=== PATIENT | female | born 1980 | race Caucasian/White ===

== ENCOUNTER → 2017-06-16 | Outpatient (CLI) | payer BC | END | disposition home or self-care (01) | LOC: C.PATHSPEC 14:24 | PROVIDERS: ATTEND Dentist Endodontics | DX: K13.79 Other lesions of oral mucosa (principal) ==

== ENCOUNTER 2018-01-25 08:56 | Inpatient (IN) | payer BC ==
[2018-01-20 18:02] LABS: BASO % 0.1 %; BASO ABS # 0.01 K/uL (0-0.2); EOS % 1.1 %; HEMATOCRIT 35.3 % (37-47); HEMOGLOBIN 11.6 g/dL (12.0-16.0); IG# 0.02 K/uL (0.00-0.02); LYMPH % 32.3 %; MEAN CELL VOLUME 77.6 fL (80-100); MEAN CORPUSCULAR HEMOGLOBIN 25.5 pg (25-34); MEAN CORPUSCULAR HGB CONC 32.9 g/dl (32-36); MEAN PLATELET VOLUME 9.4 fL (7.4-10.4); MONO % 5.2 %; MONO ABS # 0.47 K/uL (0.11-0.59); NEUT % 61.1 %; NEUT ABS # 5.48 K/uL (1.4-6.5); PLATELET COUNT 306 K/uL (130-400); RED CELL DISTRIBUTION WIDTH CV 16.6 % (11.5-14.5); WHITE BLOOD COUNT 8.98 K/uL (4.8-10.8)
--- NOTE | 2018-01-20 18:09 | DIAGNOSTIC IMAGING REPORT ---
CHEST 2 VIEWS ROUTINE CLINICAL HISTORY: 37 years-old Female presenting with preoperative assessment, asymptomatic, history of lung nodule. TECHNIQUE: PA and lateral views of the chest were obtained. COMPARISON: None. FINDINGS: Cardiomediastinal silhouette normal. Lungs and pleural spaces clear. Degenerative changes of the thoracic spine. Cholecystectomy clips noted. IMPRESSION: 1. No acute cardiopulmonary disease. Electronically signed by: Marlon Oglesby M.D. 01/20/2018 6:07 PM Dictated Date/Time: 01/20/2018 6:06 PM
[2018-01-20 18:21] LABS: BLOOD UREA NITROGEN 11 mg/dl (7-18); CALCIUM 8.9 mg/dl (8.5-10.1); CARBON DIOXIDE 27 mmol/L (21-32); CREATININE 0.61 mg/dl (0.60-1.20); GLUCOSE 96 mg/dl (70-99); POTASSIUM 3.3 mmol/L (3.5-5.1); SODIUM 140 mmol/L (136-145)
[2018-01-21 14:58] VITALS: BMI 57.0
[~2018-01-25] VITALS: Ht 167.6 cm; Wt 165.7 kg
[2018-01-25] VITALS (9 sets, daily range): BP systolic 94–156; BP diastolic 61–94; PULSE 84–107; TEMP 36.3–37; O2SAT 95–99; Ht 167.6 cm; Wt 165.7 kg
[~2018-01-25 08:56] MED LIST: ACET-1256 PO; ACETAMINOPHEN 500 MG TAB PO SCH; CEFAZOLIN 3000MG IV PUSH 22.5 ML IV SCH; CIPR1TAB11 PO; CeleBREX 200 MG CAP PO SCH; GABAPENTIN 900 MG PO SCH; HYDR25TA4 PO; LACTATED RINGER'S 1000ML 1,000 ML IV SCH; PRED-301 PO; PRLSR20 PO; VALA500T60 PO
[2018-01-25] MEDS ORDERED: EpHEDrine SULFATE INJ 50 MG/ML AMP IV PRN (10:00)
[2018-01-25] MEDS ORDERED: ONDANSETRON INJ 2 MG/ML 2 ML VIAL IV PRN ×2 (10:00→14:45)
[2018-01-25] MEDS ORDERED: FENTANYL CITRATE INJ 50 MCG/1 ML 2 ML VIAL IV PRN (10:00)
[2018-01-25] MEDS ORDERED: ATROPINE SULFATE 0.1 MG/ML 5ML SYR IV PRN (10:00)
--- NOTE | 2018-01-25 10:20 | History & Physical Bridge Note ---
H&P Re-Evaluation Bridge Note: I have examined the patient, reviewed the History & Physical and in the interval since the performance of the History & Physical I have noted the following changes of clinical significance: No changes noted
--- NOTE | 2018-01-25 10:22 | History and Physical ---
History & Physical Date January 25, 2018. Chief Complaint Back and leg pain History of Present Illness The patient is a 37 year old female with complaints of severe back and bilateral leg pain. She is failed extensive course of nonoperative care marked inability to function and would like to undergo surgical intervention. Additional History Hepatic Disease: No Endocrine Disorder: No Kidney Disease: No Hypertension: Yes Heart Disease: No Bleeding Tendencies: No Infectious Diseases: No Other: Morbid obesity Allergies Coded Allergies: No Known Allergies (Unverified , 01/21/18) Home Medications Scheduled Ciprofloxacin Tab (Cipro), 500 MG PO UD Hydrochlorothiazide (Hctz), 25 MG PO QAM Omeprazole (Prilosec), 20 MG PO HS Prednisone (Prednisone), 5 MG PO QDD Scheduled PRN Acetaminophen (Tylenol), 2 TAB PO UD PRN for Pain Valacyclovir (Valtrex), 500 MG PO UD PRN for COLD SORE Physical Examination Skin: warm/dry, no rash Eyes: normal inspection, EOMI, sclerae normal ENT: normal ENT inspection, pharynx normal Head: normocephalic, atraumatic Neck: supple, no adenopathy, trachea midline Respiratory/Chest: lungs clear, normal breath sounds, no respiratory distress Cardiovascular: regular rate, rhythm, no edema, no murmur Abdomen / GI: normal bowel sounds, non tender Back: normal inspection Extremities: normal inspection, normal range of motion Neurologic/Psych: no motor/sensory deficits, alert, normal reflexes, oriented x 3 Diagnosis Lumbar spinal stenosis with herniated nucleus pulposus and free fragment L4-5 and L5-S1 Plan of Treatment Lumbar decompression and fusion L4-5 L5-S1
[2018-01-25] MEDS ORDERED: MIDAZOLAM HCL 1 MG/ML 2ML VIAL ONE (10:39)
[2018-01-25] MEDS ORDERED: FENTANYL CITRATE INJ 50 MCG/1 ML 2 ML VIAL ONE ×6 (10:39→13:58)
[2018-01-25] MEDS ORDERED: BUPIVACAINE 0.5 % 5 MG/1 ML MPF 30ML VIAL ONE (11:11)
[2018-01-25] MEDS ORDERED: BACITRACIN 50000 UNIT VIAL ONE (11:11)
[2018-01-25] MEDS ORDERED: EpINEphrine INJ 1MG/ML AMP 1 MG/ML AMP ONE (11:11)
[2018-01-25] MEDS ORDERED: HYDROmorphone INJ 2 MG/ML SYR/VIAL ONE ×2 (11:54→13:24)
[2018-01-25] MEDS ORDERED: ONDANSETRON INJ 2 MG/ML 2 ML VIAL ONE ×2 (12:19→14:08)
[2018-01-25] MEDS ORDERED: DEXAMETHASONE SOD INJ 4 MG/ML VIAL ONE (12:19)
[2018-01-25] MEDS ORDERED: LIDOCAINE HCL 2% 2 ML VIAL (20MG/ML) ONE (12:19)
[2018-01-25] MEDS ORDERED: ESMOLOL HCL 10 MG/ML 10 ML VIAL ONE (12:19)
[2018-01-25] MEDS ORDERED: PROPOFOL IV EMULSION 10 MG/ML 20 ML VIAL ONE (12:19)
[2018-01-25] MEDS ORDERED: GLYCOPYRROLATE INJ 0.2 MG/ML VIAL ONE (13:55)
[2018-01-25] MEDS ORDERED: NEOSTIGMINE METHYLSULFATE 1 MG/ML 10ML VIAL ONE (13:55)
[2018-01-25] MEDS ORDERED: SURGICEL ABSORB HEMOSTAT 2IN X 14IN TOP ONE (13:57)
[2018-01-25] MEDS ORDERED: VOLUVEN IN NSS ONE (14:08)
[2018-01-25] MEDS ORDERED: KETOROLAC TROMETHAMINE 30 MG/ML VIAL ONE (14:08)
[2018-01-25] MEDS ORDERED: FLOSEAL HEMOSTATIC MATRIX 10ML TOP ONE (14:29)
--- NOTE | 2018-01-25 14:41 | [facility] Operative Report ---
Operative Report Operative Date January 25, 2018. Pre-Operative Diagnosis Lumbar spinal stenosis with herniated nucleus pulposus and free fragment L4-5 and L5-S1 Post-Operative Diagnosis Lumbar spinal stenosis with herniated nucleus pulposus and free fragment L4-5 and L5-S1 Procedure(s) Performed 1. Lumbar decompression medial facetectomies foraminotomies L3-4 L4-5 L5-S1. #2 posterior spinal fusion L4-5 L5-S1. #3 placement posterior segment instrumentation L4-5 L5-S1. #4 interbody fusion L4-5 L5-S1. #5 placement of titanium cage 11 x 22 mm L4-5 and 9 x 22 mm L5-S1. #6 placement of locally harvested morselized autograft and posterior gutters. #7 placement InFUSE collagen sponge, mass graft the posterior gutters and ostial amp in the interbody space. Surgeon Dr. Gavino Munoz Watch Repairer Apprentice Surgeon(s) Minda David PA-C Estimated Blood Loss 675ml Findings Severe spinal stenosis Specimens None per surgeon Anesthesia Type General Description of Procedure Patient was met with preoperatively case discussed all questions addressed. After informed consent obtained patient was taken to the operative suite underwent intubation and placed in a prone position the Celso table on top of the Ronal frame. All bony prominences well-padded eyes inspected to ensure no external pressure placed upon them. This point the lumbar spine was prepped and draped in normal sterile fashion. Sharp dissection with the assistance of Bovie cautery was performed on February exposing the lamina and transverse process of L4-L5 and sacral ala bilaterally. From caudocephalad fashion complete laminectomy of L5 L4 partial laminectomy of L3 is performed addressing severe lateral recess and foraminal disease appreciable compression of the nerves. After this complete pedicle screws placed in L4 L5-S1 levels bilaterally with the assistance of fluoroscopy purposes malou placed. Through a transforaminal approach and right complete discectomy of L5-S1 was performed endplates created to subcortical bleeding bone and a 9 x 22 mm titanium cage filled with ostium bone graft tapped in position. Then proceeded to 4 5 and again through a transforaminal approach right complete discectomy performed endplates could to subcortical bleeding bone and a 11 x 22 mm titanium cage filled ostia bone graft tapped in position. Of note the discs and annulus were well calcified. Several fragments were removed as well as addressing caudal migration. Rods were then compressed locked in final position bilaterally. The transverse processes of L4 L5-S1 levels burred to subcortical bleeding bone. Infuse collagen sponge mesh graft and local autograft placed in the posterior gutters. 15 round JAMA drain inserted. Incision incision closed with 1 Vicryl fascia 2- 0 Vicryl substantially 4 Monocryl fashion closure Steri-Strips sterile dressings placed patient will continue PACU stable discrete please note Minda David was present throughout the entire procedure involved in patient positioning complex portions of the surgery and fashion closure. I attest to the content of the Intraoperative Record and any orders documented therein. Any exceptions are noted below.
[2018-01-25] MEDS ORDERED: SODIUM CHLORIDE 0.9% 1000ML 1,000 ML IV SCH (14:42)
[2018-01-25] MEDS ORDERED: ALUMINUM/MAGNESIUM SUSP 30 ML UDC PO PRN (14:45)
[2018-01-25] MEDS ORDERED: PROMETHAZINE HCL INJ 12.5 MG in SODIUM CHLORIDE 0.9% 50ML 50 ML IV PRN (14:45)
[2018-01-25] MEDS ORDERED: MAGNESIUM HYDROXIDE SUSP 30 ML UDC PO PRN (14:45)
[2018-01-25] MEDS ORDERED: BISACODYL 10 MG SUPP PR PRN (14:45)
[2018-01-25] MEDS ORDERED: SOD PHOSPHATE/SOD BIPHOSPHATE ENEMA 132 ML BTL PR PRN (14:45)
[2018-01-25] MEDS ORDERED: LORAZEPAM 0.5 MG TAB PO PRN (14:45)
[2018-01-25] MEDS ORDERED: hydrOXYzine HCL 25 MG TAB PO PRN (14:45)
[2018-01-25] MEDS ORDERED: NALOXONE HCL 0.4 MG/1 ML VIAL/CARP IV PRN ×2 (14:45)
[2018-01-25] MEDS ORDERED: FAMOTIDINE 20 MG TAB PO PRN (14:45)
[2018-01-25] MEDS ORDERED: DO NOT ADMINISTER FLU VACCINE PRN (14:45)
[2018-01-25] MEDS ORDERED: DO NOT ADMINISTER PNEUMOCOCCAL VACCINE PRN (14:45)
[2018-01-25] MEDS ORDERED: LORAZEPAM INJ 0.5 MG in SYRINGE 0.75 ML IV PRN (14:45)
[2018-01-25] MEDS ORDERED: METOCLOPRAMIDE HCL INJ 5 MG/ML 2 ML VIAL IV PRN (14:45)
[2018-01-25] MEDS ORDERED: ROCURONIUM BROMIDE 10 MG/ML 5 ML VIAL ONE (14:52)
[2018-01-25] MEDS ORDERED: SUCCINYLCHOLINE CHLORIDE 20 MG/ML 10 ML VIAL IV ONE (14:52)
--- NOTE | 2018-01-25 14:53 | DIAGNOSTIC IMAGING REPORT ---
LUMBAR SPINE, INTRAOPERATIVE FLUOROSCOPY HISTORY: L4-S1 decompression and fusion. FLUOROSCOPY TIME: 33 seconds. FINDINGS: Intraoperative fluoroscopy was provided for the lumbar spine. 2 fluoroscopic spot images were obtained. Posterior decompression and fusion from L4 through S1 with pedicle screws and rods. The hardware is intact. IMPRESSION: Fluoroscopy provided for a L4-S1 posterior decompression and fusion. Electronically signed by: Roque Yarbrough M.D. 01/25/2018 2:52 PM Dictated Date/Time: 01/25/2018 2:51 PM
[2018-01-25] MEDS: HYDROmorphone HCL 0.5MG/ML 50 ML CASSETTE IV PRN ×3 (15:22→23:00)
--- NOTE | 2018-01-25 15:44 | Anesthesiology Progress Note ---
Anesthesia Post Op Note Date & Time January 25, 2018 at 15:44 Vital Signs Pain Intensity: 0 Vital Signs Past 12 Hours Date Time Temp Pulse Resp B/P (MAP) Pulse Ox O2 Delivery O2 Flow Rate FiO2 01/25/18 15:06 36.6 87 11 148/81 100 Oxymask 10 01/25/18 10:25 37 84 20 156/94 01/25/18 09:27 96 Room Air Notes Mental Status: alert / awake / arousable, participated in evaluation Pt Amnestic to Procedure: Yes Nausea / Vomiting: adequately controlled Pain: adequately controlled Airway Patency, RR, SpO2: stable & adequate BP & HR: stable & adequate Hydration State: stable & adequate Anesthetic Complications: no major complications apparent
[2018-01-25] MEDS ORDERED: ACETAMINOPHEN 500 MG TAB PO PRN (18:00)
[2018-01-25] MEDS ORDERED: ACETAMINOPHEN IV 100 ML IV PRN (18:00)
[2018-01-25] MEDS: LACTATED RINGER'S 1000ML 1,000 ML IV SCH (19:49)
[2018-01-25] MEDS: CEFAZOLIN IV 2,000 MG in SYRINGE 0 ML IV SCH (20:06)
[2018-01-25] MEDS: PANTOprazole SOD 40 MG TAB PO SCH (21:24)
[2018-01-25] MEDS: DOCUSATE SODIUM/SENNA 50/8.6MG TAB PO SCH (21:25)
[2018-01-26] MEDS: LACTATED RINGER'S 1000ML 1,000 ML IV SCH (02:15)
[2018-01-26] MEDS: CEFAZOLIN IV 2,000 MG in SYRINGE 0 ML IV SCH (03:44)
[2018-01-26 03:55] VITALS: BP 133/72; PULSE 95; TEMP 36.8; O2SAT 96
[2018-01-26] MEDS ORDERED: DC PCA ONE (06:00)
[2018-01-26] MEDS ORDERED: HYDROmorphone INJ 0.5 MG/0.5 ML SYR IV PRN (06:00)
[2018-01-26] MEDS ORDERED: NURSING VERBAL MED ORDER ONE (06:30)
[2018-01-26 06:45] LABS: BASO % 0.1 %; BASO ABS # 0.01 K/uL (0-0.2); HEMATOCRIT 28.9 % (37-47); HEMOGLOBIN 9.4 g/dL (12.0-16.0); IG# 0.07 K/uL (0.00-0.02); LYMPH % 7.1 %; LYMPH ABS # 1.11 K/uL (1.2-3.4); MEAN CELL VOLUME 77.9 fL (80-100); MEAN CORPUSCULAR HEMOGLOBIN 25.3 pg (25-34); MEAN CORPUSCULAR HGB CONC 32.5 g/dl (32-36); MEAN PLATELET VOLUME 9.7 fL (7.4-10.4); MONO % 4.8 %; MONO ABS # 0.75 K/uL (0.11-0.59); NEUT % 87.6 %; NEUT ABS # 13.68 K/uL (1.4-6.5); PLATELET COUNT 300 K/uL (130-400); RED CELL DISTRIBUTION WIDTH CV 16.3 % (11.5-14.5); RED CELL DISTRIBUTION WIDTH SD 46.3 fL (36.4-46.3); WHITE BLOOD COUNT 15.62 K/uL (4.8-10.8)
[2018-01-26 07:16] LABS: CALCIUM 8.2 mg/dl (8.5-10.1); CREATININE 0.63 mg/dl (0.60-1.20); POTASSIUM 4.4 mmol/L (3.5-5.1)
[2018-01-26 07:29] VITALS: BP 115/73; PULSE 96; TEMP 36.7; O2SAT 94
--- NOTE | 2018-01-26 07:52 | Anesthesiology Progress Note ---
Anesthesia Post Op Note Date & Time January 26, 2018 at 07:52 Vital Signs Pain Intensity: 5.0 Vital Signs Past 12 Hours Date Time Temp Pulse Resp B/P (MAP) Pulse Ox O2 Delivery O2 Flow Rate FiO2 01/26/18 07:29 36.7 96 19 115/73 (87) 94 Room Air 01/26/18 07:18 Room Air 01/26/18 03:55 36.8 95 16 133/72 (92) 96 Room Air 01/25/18 23:31 36.8 107 16 115/68 (84) 96 Room Air 01/25/18 23:20 Room Air Notes Mental Status: alert / awake / arousable, participated in evaluation Pt Amnestic to Procedure: Yes Nausea / Vomiting: adequately controlled, improving with treatment Pain: adequately controlled Airway Patency, RR, SpO2: stable & adequate BP & HR: stable & adequate Hydration State: stable & adequate Anesthetic Complications: no major complications apparent
[2018-01-26] MEDS: OXYCODONE HCL IR 5 MG TAB (IMMEDIATE RELEASE) PO PRN (08:55)
[2018-01-26] MEDS: HYDROCHLOROTHIAZIDE 25 MG TAB PO SCH (09:13)
--- NOTE | 2018-01-26 09:54 | Progress Note ---
Progress Note Date of Service January 26, 2018. Progress Note Back pain controlled leg symptoms improved some numbness in the right lower extremity. Vital signs are stable. JAMA drain decreasing probably. On exam she is good strength testing appears comfortable. Assessment status post lumbar decompression fusion per plan at this time will initiate physical therapy advance her bowel regiment hopefully discharge home in the next few days.
[2018-01-26] MEDS ORDERED: RXC5 PO (09:56)
--- NOTE | 2018-01-26 09:57 | Discharge Instructions ---
Discharge Instructions Date of Service January 26, 2018. Admission Reason for Admission: Lumbar Spinal Stenosis Discharge Discharge Diagnosis / Problem: lumbar stenosis Discharge Goals Goal(s): Improve function Activity Recommendations Activity Limitations: per Instructions/Follow-up section . Instructions / Follow-Up Instructions / Follow-Up ACTIVITY RECOMMENDATIONS: SELF CARE INSTRUCTIONS AFTER THORACIC/LUMBAR FUSIONS 1. You may walk to your tolerance. It is good exercise for your legs and back. Expect some back and intermittent leg aches and pains. 2. You may perform "counter-top" level activities (make a sandwich, soni with a project, etc.). 3. No bending or lifting of more than 10 pounds or back twisting of any nature (roll like a log when turning in bed). 4. You may ride in a car for 20-30 minutes at a time. No driving until after your first visit with your doctor. 5. Frequent changes of position and restricting sitting to 30 minutes at a time will help limit the amount of back spasms and stiffness you may experience. 6. You may discontinue the use of ambulatory aids (cane, crutches, etc.) once your strength and confidence allow. 7. You may coding coordinator the shower and let water strike your incision when you arrive home at least once daily. Do not take a tub bath, sit in a hot tub or go into a swimming pool until after your first recheck in the office. SPECIAL CARE INSTRUCTIONS: VERY IMPORTANT TO READ AND REVIEW A. Your surgical incision has been closed with a cosmetic suture under the skin that will dissolve in about 6 weeks. In 14 days, you can use a pair of clean scissors and cut the suture that is left outside of the skin at the ends of your incision. 1. The small skin tapes can be removed 7 days after surgery if they have not fallen off by that point. 2. You may keep the wound open to air as much as possible to promote healing after post-op day number 5 unless told otherwise by your doctor. 3. If you think the wound looks like it is becoming infected (redness or worsening drainage) and/or you are experiencing fever, chill or worsening back pain and muscle spasms, contact the office so that we may evaluate you as soon as possible. B. Complications are uncommon, but please contact us if you have any signs or symptoms of: 1. wound infection (fever higher than 102.5 degrees F, redness, separation of wound, drainage, or increasing pain from the incision) 2. blood clots in legs (pain, swelling, redness and warmth in legs) 3. urinary tract infection (fever higher than 102.5 degrees F, burning upon urination or increased frequency of urination) 4. nerve problems (inability to walk on your toes or heels, numbness, loss of bowel or bladder control) 5. any other symptoms that concern you C. Please call the office at if you have any concerns or questions about your operation or recovery. D. No smoking! Smoking drastically decreases the chance of a solid fusion. E. Do not take any anti-inflammatory medications (Indocin, Advil, Motrin, Aspirin, Naprosyn, etc.) as these may inhibit the chance of a solid fusion. Tylenol is okay to take for pain. MANAGING PAIN AFTER SPINAL SURGERY 1. Narcotic medication is intended for short-term use and will be provided for surgical pain. Surgical pain usually lasts for a period of 4-6 weeks. Narcotic medication includes Percocet, Vicodin, Darvocet, Tylenol #3 or Lortab. 2. Longer-term pain is more appropriately treated with non-narcotic medication such as Tylenol ES. 3. Muscle spasm is not appropriately treated with narcotics. Muscle relaxers such as Soma, Flexeril or Skelaxin can be used along with Tylenol ES. 4. Remember that we all live with some "aches and pains". This is not unusual or uncommon after an injury or as we get older. a. Back pain is expected and may include muscle spasms for 4 to 6 weeks after surgery. The pain should gradually improve. If the pain worsens for no apparent reason, please contact the office. b. Intermittent leg pain may also be experienced and should not be concerned about unless it worsens for no apparent reason. If so, please contact the office. 5. We will provide appropriate medication within the normal guidelines of their prescribed use. We will also be very cautious and aware of potential abuse and extended duration of patients' medication needs. a. Pain medications are for your comfort and to assist with sleep and rest so that the tissue can heal. They are not provided in order to return to normal activity and should not be used through the day. To do so or worsening pain at night can result from ongoing tissue damage and development of tolerance to the prescribed medicine. 6. Please allow 2-3 days to process refills. Prescriptions will not be mailed but must be picked up at the office. FOLLOW UP VISIT: Keep your scheduled follow-up appointment. Any questions, please call the office at . Current Hospital Diet Patient's current hospital diet: Regular Diet Discharge Diet Recommended Diet: Regular Diet Procedures Procedures Performed: 1. Lumbar decompression medial facetectomies foraminotomies L3-4 L4-5 L5-S1. #2 posterior spinal fusion L4-5 L5-S1. #3 placement posterior segment instrumentation L4-5 L5-S1. #4 interbody fusion L4-5 L5-S1. #5 placement of titanium cage 11 x 22 mm L4-5 and 9 x 22 mm L5-S1. #6 placement of locally harvested morselized autograft and posterior gutters. #7 placement InFUSE collagen sponge, mass graft the posterior gutters and ostial amp in the interbody space. Pending Studies Studies pending at discharge: no Medical Emergencies . Who to Call and When: Medical Emergencies: If at any time you feel your situation is an emergency, please call 911 immediately. . Non-Emergent Contact Non-Emergency issues call your: Primary Care Provider . "Provider Documentation" section prepared by Gavino Munoz. .
[2018-01-26 10:44] VITALS: BP 106/67; PULSE 90; O2SAT 97
[2018-01-26 10:45] VITALS: BP 107/72; PULSE 95; TEMP 37; O2SAT 97
[2018-01-26 15:11] VITALS: BP 133/68; PULSE 90; TEMP 36.9; O2SAT 99
[2018-01-26] MEDS: KETOROLAC TROMETHAMINE 30 MG/ML VIAL IV PRN ×2 (15:26→21:34)
[2018-01-26] MEDS: DOCUSATE SODIUM/SENNA 50/8.6MG TAB PO SCH (20:27)
[2018-01-26] MEDS: PANTOprazole SOD 40 MG TAB PO SCH (20:27)
[2018-01-26 23:10] VITALS: BP 124/72; PULSE 79; TEMP 36.6; O2SAT 96
[2018-01-27] MEDS: POLYETHYLENE (MIRALAX) 17 GM PACK PO SCH ×4 (05:58→23:22)
[2018-01-27 07:39] VITALS: BP 137/81; PULSE 91; TEMP 36.8; O2SAT 98
[2018-01-27] MEDS: HYDROCHLOROTHIAZIDE 25 MG TAB PO SCH (08:19)
[2018-01-27 08:30] VITALS: O2SAT 98
--- NOTE | 2018-01-27 13:09 | Progress Note ---
Progress Note Date of Service January 27, 2018. Progress Note Patient's making slow progress with therapy. Still feels some weakness in the bilateral extremity's. Her leg symptoms and pain are improved. She still has some residual numbness to the right lower extremity. On exam she is alert and oriented cooperative is good strength testing. Assessment status post lumbar decompression fusion per plan at this time will continue to advance therapy as tolerated and she would like to go home the next few days.
[2018-01-27] MEDS: KETOROLAC TROMETHAMINE 30 MG/ML VIAL IV PRN (14:31)
[2018-01-27 15:22] VITALS: BP 157/102; PULSE 93; TEMP 36.8; O2SAT 100
[2018-01-27 15:35] VITALS: BP 155/88
[2018-01-27] MEDS ORDERED: NURSING VERBAL MED ORDER ONE (16:45)
[2018-01-27] MEDS: DOCUSATE SODIUM/SENNA 50/8.6MG TAB PO SCH (20:13)
[2018-01-27] MEDS: PANTOprazole SOD 40 MG TAB PO SCH (20:13)
[2018-01-27 23:05] VITALS: BP 108/72; PULSE 90; TEMP 36.7; O2SAT 96
[2018-01-28] MEDS: KETOROLAC TROMETHAMINE 30 MG/ML VIAL IV PRN (01:13)
[2018-01-28] MEDS: POLYETHYLENE (MIRALAX) 17 GM PACK PO SCH ×3 (05:36→18:00)
[2018-01-28 07:18] VITALS: BP 125/84; PULSE 86; TEMP 36.8; O2SAT 97
[2018-01-28] MEDS: HYDROCHLOROTHIAZIDE 25 MG TAB PO SCH (08:51)
[2018-01-28 09:00] VITALS: O2SAT 97
--- NOTE | 2018-01-28 14:28 | Progress Note ---
Progress Note Date of Service January 28, 2018. Progress Note Patient states her back pain is controlled. Leg pain improving. Still some numbness. No bowel movement as of yet. On exam she is in a chair at the bedside. Is good strength testing. Assessment status post multilevel lumbar depression fusion per plan at this time will continue to advance her bowel regimen continue physical therapy anticipate home tomorrow.
[2018-01-28 14:54] VITALS: BP 126/80; PULSE 93; TEMP 36.9; O2SAT 100
[2018-01-28] MEDS ORDERED: NURSING DECISION MEDICATION ORDER SCH (19:30)
[2018-01-28] MEDS: PANTOprazole SOD 40 MG TAB PO SCH (20:37)
[2018-01-28] MEDS: DOCUSATE SODIUM/SENNA 50/8.6MG TAB PO SCH (20:37)
[2018-01-28] MEDS: OXYCODONE HCL IR 5 MG TAB (IMMEDIATE RELEASE) PO PRN (20:38)
[2018-01-28 23:22] VITALS: BP 106/72; PULSE 86; TEMP 36.7; O2SAT 98
[2018-01-29 06:30] VITALS: BP 116/77; PULSE 83; TEMP 36.8; O2SAT 96
[2018-01-29] MEDS: HYDROCHLOROTHIAZIDE 25 MG TAB PO SCH (07:32)
[2018-01-29 09:40] VITALS: BP 116/77; PULSE 83; TEMP 36.8; O2SAT 96
[2018-01-29] MEDS: OXYCODONE HCL IR 5 MG TAB (IMMEDIATE RELEASE) PO PRN (10:47)
--- NOTE | 2018-01-29 11:09 | Discharge Summary ---
Orthopedic Discharge Summary Admission Date/Reason January 25, 2018 at 10:30 Lumbar Spinal Stenosis. Discharge Date/Disposition January 29, 2018 Home Diagnosis Principal Diagnosis: Lumbar spinal stenosis Admission Physical Exam As per Admitting History & Physical. Hospital Course Patient underwent lumbar decompression fusion tolerated as well as taken to the orthopedic floor possibly. Postop day #1 she is up and amatory progressed the postop day #2 and 3 though very slow to progress she improved steadily. JAMA drain decreased appropriately. Subsequently discharged home. Discharge orders instructions can be found in chart for further review. Discharge Instructions Please refer to the electronic Patient Visit Report (Discharge Instructions) for additional information.
== END 2018-01-29 11:21 | disposition home or self-care (01) | DRG 454 ==
LOC: C.ACU 08:56 → C.3E 10:30 → ENRESERV 15:47
PROVIDERS: ADMIT Orthopaedic Surgery Orthopaedic Surgery of the Spine; ATTEND Orthopaedic Surgery Orthopaedic Surgery of the Spine
PROC: 0SG3071 Fusion of Lumbosacral Joint with Autologous Tissue Substitute, Posterior Approach, Posterior Column, Open Approach (ICD-10-PCS; principal; 2018-01-25 11:15)
PROC: 01NB0ZZ Release Lumbar Nerve, Open Approach (ICD-10-PCS; principal; 2018-01-25 11:15)
PROC: 0SG30AJ Fusion of Lumbosacral Joint with Interbody Fusion Device, Posterior Approach, Anterior Column, Open Approach (ICD-10-PCS; principal; 2018-01-25 11:15)
PROC: 0ST40ZZ Resection of Lumbosacral Disc, Open Approach (ICD-10-PCS; principal; 2018-01-25 11:15)
PROC: 0SG0071 Fusion of Lumbar Vertebral Joint with Autologous Tissue Substitute, Posterior Approach, Posterior Column, Open Approach (ICD-10-PCS; principal; 2018-01-25 11:15)
PROC: 0SG00AJ Fusion of Lumbar Vertebral Joint with Interbody Fusion Device, Posterior Approach, Anterior Column, Open Approach (ICD-10-PCS; principal; 2018-01-25 11:15)
PROC: 0ST20ZZ Resection of Lumbar Vertebral Disc, Open Approach (ICD-10-PCS; principal; 2018-01-25 11:15)
DX: M48.061 Spinal stenosis, lumbar region without neurogenic claudication (principal); Z68.43 Body mass index [BMI] 50.0-59.9, adult; M48.07 Spinal stenosis, lumbosacral region; M51.26 Other intervertebral disc displacement, lumbar region; M51.27 Other intervertebral disc displacement, lumbosacral region; R20.0 Anesthesia of skin; I10 Essential (primary) hypertension; K21.9 Gastro-esophageal reflux disease without esophagitis; E66.01 Morbid (severe) obesity due to excess calories; Z79.899 Other long term (current) drug therapy